=== PATIENT | female | born 1960 | race Caucasian/White ===

== ENCOUNTER 2017-10-21 13:16 | Outpatient (CLI) | payer BC ==
[~2017-10-21 13:16] MED LIST: AMOX TR-K CLV1 EAC2 ORAL
[2017-10-21 13:33] VITALS: BP 142/80
[2017-10-21] MEDS ORDERED: TYLENOL EXTRA500 MG ORAL (13:34)
--- NOTE | 2017-10-21 14:00 | GI Progress Note ---
Assessment/Plan Problems: (1) Diverticulitis ICD Codes: K57.92 - Diverticulitis of intestine, part unspecified, without perforation or abscess without bleeding SNOMED: 306358502 (2) Diverticulosis ICD Codes: K57.90 - Diverticulosis of intestine, part unspecified, without perforation or abscess without bleeding SNOMED: 050693059 (3) Constipation ICD Codes: K59.00 - Constipation, unspecified SNOMED: 09499789 Status: stable Status Narrative Seen with Dr. Reza. Assessment/Plan Diverticulitis (chronic with active flare) chronic constipation rx Levaquin + Flagyl bowel regime >> colace + miralax + lactulose RTC x 1 month Subjective Subjective abdominal pain, LUQ >> most after BM/urination constipation >> BM everyday but painful. decreased appetite Objective Last 24 Hour Vital Signs Date Time Temp Pulse Resp B/P (MAP) Pulse Ox O2 Delivery O2 Flow Rate FiO2 10/21/17 13:33 98.3 87 16 142/80 99 General Appearance: WD/WN, no apparent distress, alert Cardiovascular: normal rate Respiratory/Chest: normal breath sounds, no respiratory distress Abdominal Exam: normal bowel sounds, non tender, soft Extremities: normal range of motion, non-tender Lana Tobias N.PIndira Oct 21, 2017 14:00
== END 2017-10-21 14:05 | disposition home or self-care (01) ==
LOC: PAN 13:16
DX: K57.92 Diverticulitis of intestine, part unspecified, without perforation or abscess without bleeding (principal); K59.00 Constipation, unspecified
CPT/HCPCS: 99211